=== PATIENT | male | born 1960 | race Caucasian/White ===

== ENCOUNTER → 2017-07-07 | Outpatient (CLI) | payer BC ==
[~2017-07-07] MED LIST: MULT-506 PO; ONDA4TAB4 PO; OXYC-57 PO; OXYC1TAB3 PO
[2017-07-07 20:06] LABS: BASO % 0.3 %; BASO ABS # 0.02 K/uL (0-0.2); COMPLETE YES; EOS % 2.1 %; HEMATOCRIT 42.4 % (42-52); IG% 0.1 %; LYMPH % 19.5 %; LYMPH ABS # 1.49 K/uL (1.2-3.4); MEAN CELL VOLUME 90.4 fL (80-100); MEAN CORPUSCULAR HEMOGLOBIN 31.1 pg (25-34); MEAN CORPUSCULAR HGB CONC 34.4 g/dl (32-36); MEAN PLATELET VOLUME 9.9 fL (7.4-10.4); MONO % 9.4 %; NEUT % 68.6 %; PLATELET COUNT 318 K/uL (130-400); RED BLOOD COUNT 4.69 M/uL (4.7-6.1); WHITE BLOOD COUNT 7.63 K/uL (4.8-10.8)
[2017-07-07 20:13] LABS: URINE APPEARANCE CLEAR (CLEAR); URINE BILIRUBIN NEG (NEG); URINE COLOR YELLOW; URINE EPITHELIAL CELL AUTO 0-5 /lpf (0-5); URINE NITRITE NEG (NEG); URINE PH 5.5 (4.5-7.5); URINE SPECIFIC GRAVITY 1.018 (1.000-1.030); UROBILINOGEN NEG (NEG)
[2017-07-07 20:21] LABS: MANUAL MICROSCOPIC REQUIRED? NO; REVIEW REQ? NO
[2017-07-07 20:22] LABS: BLOOD UREA NITROGEN 19 mg/dl (7-18); BUN/CREATININE RATIO 17.2 (10-20); CALCIUM 9.3 mg/dl (8.5-10.1); CARBON DIOXIDE 31 mmol/L (21-32); CHLORIDE 104 mmol/L (98-107); GLUCOSE 120 mg/dl (70-99); POTASSIUM 3.4 mmol/L (3.5-5.1); SODIUM 140 mmol/L (136-145)
== END | disposition home or self-care (01) ==
LOC: C.LABSPEC 15:27
PROVIDERS: ATTEND Urology
DX: N20.0 Calculus of kidney (principal)

== ENCOUNTER → 2017-07-07 | Outpatient (CLI) | payer BC | END | disposition home or self-care (01) | LOC: C.CPL 19:18 | PROVIDERS: ATTEND Urology | DX: N20.0 Calculus of kidney (principal) ==

== ENCOUNTER → 2017-07-07 | Outpatient (CLI) | payer BC ==
--- NOTE | 2017-07-07 10:10 | DIAGNOSTIC IMAGING REPORT ---
[facility] CLINICAL HISTORY: Nephrolithiasis. COMPARISON STUDY: CT of the abdomen and pelvis September 05, 2016, KUB September 06, 2016 and renal ultrasound September 06, 2016. FINDINGS: Note is made of a 6 mm left renal calculus. A right ureteral stent is in place. Proximal aspect of stent projects over the pelvis and distal aspect projects over the bladder. No ureteral calculi are identified on this study. Right renal shadow is partially described by stool. IMPRESSION: 1. 6 mm left renal calculus. 2. Right ureteral stent in place. No ureteral calculi identified. Electronically signed by: Harlan Landers M.D. 07/07/2017 10:08 AM Dictated Date/Time: 07/07/2017 10:05 AM
--- NOTE | 2017-07-07 20:00 | DIAGNOSTIC IMAGING REPORT ---
CHEST 2 VIEWS ROUTINE CLINICAL HISTORY: 56 years-old Male presenting with nephrolithiasis, preoperative assessment. TECHNIQUE: PA and lateral views of the chest were obtained. COMPARISON: None. FINDINGS: Cardiomediastinal silhouette normal. Hyperinflation. Lungs and pleural spaces clear. Osseous structures normal. Upper abdomen normal. IMPRESSION: 1. Hyperinflation. Otherwise no acute cardiopulmonary disease. Electronically signed by: Jose M Donlad M.D. 07/07/2017 7:59 PM Dictated Date/Time: 07/07/2017 7:58 PM
== END | disposition home or self-care (01) ==
LOC: C.RAD 09:41
PROVIDERS: ATTEND Urology
DX: N20.0 Calculus of kidney (principal); Z96.0 Presence of urogenital implants

== ENCOUNTER → 2017-07-27 | Outpatient (CLI) | payer BC ==
[~2017-07-27] MED LIST changes: -ONDA4TAB4 PO; -OXYC1TAB3 PO
--- NOTE | 2017-07-27 17:56 | DIAGNOSTIC IMAGING REPORT ---
KUB HISTORY: NEPHROLITHIASIS COMPARISON: KUB 07/07/2017. FINDINGS: The bowel gas pattern is unremarkable. There are no dilated loops of small bowel to suggest an obstruction. No change in the 6 mm stone within the lower pole the left kidney. No definite right renal calculi. Note, the right renal shadow is partially obscured by overlying bowel gas. Calcifications in the deep pelvis remain stable and likely represent phleboliths. The right ureteral stent has been removed. No definite ureteral calculi. No pneumoperitoneum or pneumatosis. IMPRESSION: 1. Stable 6 mm stone within the left kidney. 2. The right ureteral stent has been removed. 3. No ureteral calculi. Electronically signed by: Sergei Reis M.D. 07/27/2017 5:55 PM Dictated Date/Time: 07/27/2017 5:54 PM
== END | disposition home or self-care (01) ==
LOC: C.RAD 17:31
PROVIDERS: ATTEND Urology
DX: N20.0 Calculus of kidney (principal)

== ENCOUNTER → 2017-07-28 | Day surgery (SDC) | payer BC ==
[2017-07-12 10:05] VITALS: Ht 185.4 cm; Wt 68.2 kg
[~2017-07-28] VITALS: Ht 185.4 cm; Wt 68.2 kg
[~2017-07-28] MED LIST changes: +CIPROFLOXACIN 400MG / D5W IV SCH; +DEXAMETHASONE SOD INJ 4 MG/ML VIAL ONE; +DiphenhydrAMINE HCL 50 MG/ML VIAL ONE; +FENTANYL CITRATE INJ 50 MCG/1 ML 2 ML VIAL ONE; +LACTATED RINGER'S 1000ML 1,000 ML IV SCH; +LIDOCAINE HCL 2% 2 ML VIAL (20MG/ML) ONE; +MIDAZOLAM HCL 1 MG/ML 2ML VIAL ONE; +ONDANSETRON INJ 2 MG/ML 2 ML VIAL ONE; +PROPOFOL IV EMULSION 10 MG/ML 20 ML VIAL IV ONE
--- NOTE | 2017-07-28 11:04 | History & Physical Bridge - SC ---
H&P Re-Evaluation Bridge Note: I have examined the patient, reviewed the History & Physical and in the interval since the performance of the History & Physical I have noted the following changes of clinical significance: No changes noted
--- NOTE | 2017-07-28 11:53 | Discharge Instructions-SurgCtr ---
Discharge Instructions Date of Service Jul 28, 2017. Visit Reason for Visit: Stones Discharge Discharge Diagnosis / Problem: post op l renal stone Discharge Goals Goal(s): Improve function, Increase independence, Improve disease control Activity Recommendations Activity Limitations: resume your previous activity Anesthesia . Post Anesthesia Instructions: If you have had General Anesthesia or IV Sedation: * Do not drive today. * Resume driving when surgeon permits. * Do not make important decisions or sign legal documents today. * Call surgeon for: 1. Temperature elevations greater than 101 degrees F. 2. Uncontrollable pain. 3. Excessive bleeding. 4. Persistent nausea and vomiting. 5. Medication intolerance (nausea, vomiting or rash). * For nausea and vomiting use only clear liquids such as: tea, soda, bouillon until nausea subsides, then gradually increase diet as tolerated. * If you have any concerns or questions, call your surgeon's office. If physician is unavailable and it is an emergency, call 911 or go to the nearest emergency room. . Diet Recommendations Home Diet: resume previous diet Procedures Procedures Performed: Left Extracorporeal Shock Wave Lithotripsy Pending Studies Studies pending at discharge: no (no driving on narcotics) Medical Emergencies . Who to Call and When: Medical Emergencies: If at any time you feel your situation is an emergency, please call 911 immediately. . Non-Emergent Contact Non-Emergency issues call your: Urologist Call Non-Emergent contact if: temperature is above 101, your pain is not controlled . . "Provider Documentation" section prepared by Nacho Meraz. .
--- NOTE | 2017-07-28 11:55 | [facility] Post Operative Brief Note ---
Immediate Operative Summary Operative Date Jul 28, 2017. Pre-Operative Diagnosis Left Renal Calculi Post-Operative Diagnosis Same Procedure(s) Performed Left Extracorporeal Shock Wave Lithotripsy Surgeon Dr. Meraz Front Desk Specialist Surgeon(s) None Estimated Blood Loss 0 Findings stone appeared to fragment Specimens 0
[2017-07-28 12:45] VITALS: TEMP 36.6
[2017-07-28 13:14] VITALS: BP 125/80; PULSE 56; O2SAT 100
--- NOTE | 2017-07-28 13:14 | Anesthesiology Progress Note ---
Anesthesia Post Op Note Date & Time Jul 28, 2017 at 13:14 Vital Signs Pain Intensity: 0 Vital Signs Past 12 Hours Date Time Temp Pulse Resp B/P (MAP) Pulse Ox O2 Delivery O2 Flow Rate FiO2 07/28/17 12:45 36.6 73 16 142/89 (106) 97 Room Air 07/28/17 12:36 37.1 50 14 107/78 100 Room Air 07/28/17 12:36 60 19 07/28/17 12:36 59 19 107/78 99 07/28/17 12:31 51 14 115/74 100 07/28/17 12:31 51 14 07/28/17 12:26 51 13 07/28/17 12:26 49 13 112/79 100 07/28/17 12:21 53 13 116/79 100 07/28/17 12:21 53 13 07/28/17 12:16 55 13 07/28/17 12:16 55 13 116/79 100 07/28/17 12:11 55 13 121/80 100 07/28/17 12:11 54 13 07/28/17 12:06 52 12 109/74 100 07/28/17 12:06 53 12 07/28/17 12:02 114/85 07/28/17 12:01 62 100 07/28/17 12:01 36.6 58 12 114/85 100 Mask 6 07/28/17 12:01 62 07/28/17 10:13 36.9 76 14 128/83 (98) 100 Room Air Notes Mental Status: alert / awake / arousable, participated in evaluation Pt Amnestic to Procedure: Yes Nausea / Vomiting: adequately controlled Pain: adequately controlled Airway Patency, RR, SpO2: stable & adequate BP & HR: stable & adequate Hydration State: stable & adequate Anesthetic Complications: no major complications apparent
--- NOTE | 2017-07-28 16:12 | OPERATIVE REPORT ---
DATE OF OPERATION: 07/28/2017 PROCEDURE PERFORMED: Left renal stone. POSTOPERATIVE DIAGNOSIS: Same. SURGEON: Dr. Meraz. ANESTHESIA: General. INDICATIONS: The patient has a 6 x 6 lower pole stone, was taken electively for lithotripsy. DESCRIPTION OF THE PROCEDURE: He was given Venodyne stockings and preoperative antibiotics, taken to the operating room where from behind the head of the lithotripsy was placed on his back and the stone was localized and he was given 2500 shocks, the majority at level 4. It did appear to fragment. At the end of the procedure, he was taken to the recovery room in stable condition. I attest to the content of the Intraoperative Record and any orders documented therein. Any exception s are noted below.
== END | disposition home or self-care (01) ==
LOC: X.SURG 10:05
PROVIDERS: ATTEND Urology
DX: N20.0 Calculus of kidney (principal)

== ENCOUNTER → 2017-08-07 | Outpatient (CLI) | payer BC ==
[~2017-08-07] MED LIST changes: -CIPROFLOXACIN 400MG / D5W IV SCH; -DEXAMETHASONE SOD INJ 4 MG/ML VIAL ONE; -DiphenhydrAMINE HCL 50 MG/ML VIAL ONE; -FENTANYL CITRATE INJ 50 MCG/1 ML 2 ML VIAL ONE; -LACTATED RINGER'S 1000ML 1,000 ML IV SCH; -LIDOCAINE HCL 2% 2 ML VIAL (20MG/ML) ONE; -MIDAZOLAM HCL 1 MG/ML 2ML VIAL ONE; -ONDANSETRON INJ 2 MG/ML 2 ML VIAL ONE; -PROPOFOL IV EMULSION 10 MG/ML 20 ML VIAL IV ONE
--- NOTE | 2017-08-07 09:16 | DIAGNOSTIC IMAGING REPORT ---
KUB HISTORY: Left-sided kidney stone. COMPARISON: KUB 07/27/2017. FINDINGS: The bowel gas pattern is unremarkable. There are no dilated loops of small bowel to suggest an obstruction. Stable 6 mm stone within the lower pole the left kidney. No right renal calculi. No definite ureteral calculi. Stable calcifications in the deep pelvis which likely represent phleboliths. Large amount well-formed stool seen throughout the colon. No pneumoperitoneum or pneumatosis. IMPRESSION: Stable 6 mm stone within the left kidney. No ureteral calculi identified. Electronically signed by: Sergei Reis M.D. 08/07/2017 9:14 AM Dictated Date/Time: 08/07/2017 9:13 AM
== END | disposition home or self-care (01) ==
LOC: C.RAD 08:28
PROVIDERS: ATTEND Urology
DX: N20.0 Calculus of kidney (principal)